=== PATIENT | male | born 2000 | race Caucasian/White ===

== ENCOUNTER 2019-01-18 18:58 | Emergency (ER) | payer SELFPAY ==
[~2019-01-18] VITALS: Ht 188 cm; Wt 72.0 kg
[2019-01-18] MEDS ORDERED: DIPHENHYDRAMINE 50MG CAPSULE PO ONE (23:00)
[2019-01-18] MEDS ORDERED: DIPHENHYDRAMINE 25MG CAPSULE PO ONE (23:00)
[2019-01-18 23:23] VITALS: BP 127/81
== END 2019-01-18 23:25 | disposition home or self-care (01) ==
LOC: ER 18:58
DX: L56.8 Other specified acute skin changes due to ultraviolet radiation (principal); L29.9 Pruritus, unspecified; X32.XXXA Exposure to sunlight, initial encounter; Y93.89 Activity, other specified; Y92.832 Beach as the place of occurrence of the external cause
CPT/HCPCS: 99283; Q0163